=== PATIENT | male | born 2000 | race Caucasian/White ===

== ENCOUNTER 2025-04-08 13:29 | Emergency (ER) | payer BC, OTHER ==
[~2025-04-08] VITALS: Ht 188 cm; Wt 64.9 kg
--- NOTE | 2025-04-08 14:26 | ED.PDOC ---
Eye-HPI HPI Comments A 24 YEAR OLD MALE PRESENTS TO THE ED WITH COMPLAINT OF SORE THROAT. PATIENT STATES HE HAS BEEN EXPERIENCING A SORE THROATS AND BODY ACHES FOR THE PAST 1 WEEK. PATIENT REPORTS HE WAS SENT BY AN URGENT CARE TO THE ED FOR FURTHER EVALUATION DUE TO HAVING A SWOLLEN LYMPH NODE ON HIS NECK. PATIENT DENIES FEVER, CHILLS, SHORTNESS OF BREATH, CHEST PAIN, ABDOMINAL PAIN, NAUSEA, VOMITING, HEADACHE, OR OTHER COMPLAINTS. NO OTHER SYMPTOMS OR MODIFYING FACTORS AT THIS TIME. PATIENT IS ALERT, ORIENTED X 4, AND HAS STEADY GAIT. Chief Complaint: Flu like Time Seen by MD: 13:34 Reviewed Notes: Nurses Notes, Medications, Allergies Allergies: Coded Allergies: NO KNOWN ALLERGIES (Unverified , 04/08/25) Home Meds Active Scripts Lidocaine HCl (Mouth-Throat) (Lidocaine HCl Viscous) 2 % Prachi, 10 ML MT TID, #100 ML Prov:JYOTHI GAXIOLA 04/08/25 Cephalexin Monohydrate (Cephalexin) 500 Mg Cap, 1 CAP PO QID, #28 CAP Prov:JYOTHI GAXIOLA 04/08/25 Penicillin V Potassium (Veetids) 500 Mg Tab, 1 TAB PO QID, #28 TAB Prov:JYOTHI GAXIOLA 04/08/25 Information Source: Patient Mode of Arrival: Ambulatory Timing: Days Duration: Since onset, Days Prehospital treatment: None Quality: Pain, Red Lids: Normal Conjunctiva: Normal Cornea: Normal Pupils: Normal EOM: Normal Fundus: Normal Slit lamp exam: Normal Anterior chamber: Normal Mouth Location: Pharynx Mouth: Normal ENT Ear Exam: Normal, Normal, Normal Nose: Normal Sinuses: Normal Oropharynx: Tonsillar hypertrophy, Red, Exudate Onset: Spontaneous Throat Exposed to: None History of: None Last Tetanus: Unknown Modifying factors: Nothing Associated signs and symptoms: Sore Throat Past Medical History PAST MEDICAL HISTORY: Denies Surgical History: Denies all surgeries Family History Family History: Reviewed,noncontributory to illness Social History Smoker: Non-Smoker Alcohol: Denies ETOH Use Drugs: Denies Drug Use Lives In: Home Constitutional: denies: chills, diaphoresis, fatigue, fever, malaise, sweats, weakness, others EENTM: reports: throat pain, throat swelling; denies: blurred vision, double vision, ear bleeding, ear discharge, ear drainage, ear pain, ear ringing, eye pain, eye redness, hearing loss, mouth pain, mouth swelling, nasal discharge, nose bleeding, nose congestion, nose pain, photophobia, tearing, voice changes, others Respiratory: denies: cough, hemoptysis, orthopnea, SOB at rest, shortness of breath, SOB with excertion, stridor, wheezing, others Cardiovascular: denies: chest pain, dizzy spells, diaphoresis, Dyspnea on exert ion, edema, irregular heart beat, left arm pain, lightheadedness, palpitations, PND, syncope, others Gastrointestinal: denies: abdomen distended, abdominal pain, blood streaked bowels, constipated, diarrhea, dysphagia, difficulty swallowing, hematemesis, melena, nausea, poor appetite, poor fluid intake, rectal bleeding, rectal pain, vomiting, others Genitourinary: denies: burning, dysuria, flank pain, frequency, hematuria, incontinence, penile discharge, penile sore, pain, testicle pain, testicle swelling, urgency, others Neurological: denies: dizziness, fainting, headache, left sided numbness, left sided weakness, numbness, paresthesia, pre-existing deficit, right sided numbness, right sided weakness, seizure, speech problems, tingling, tremors, weakness, others Musculoskeletal: reports: muscle pain; denies: back pain, gout, joint pain, joint swelling, muscle stiffness, neck pain, others Integumetry: denies: bruises, change in color, change in hair/nails, dryness, laceration, lesions, lumps, rash, wounds, others Allergic/Immunocompromised: denies: Difficulty Healing, Frequent Infections, Hives, Itching, others Hematologic/Lymphatic: denies: anemia, blood clots, easy bleeding, easy bruising, swollen glands, others Endocrine: denies: excessive hunger, excessive sweating, excessive thirst, excessive urination, flushing, intolerance to cold, intolerance to heat, unexplained weight gain, unexplained weight loss, others Psychiatric: denies: anxiety, bipolar disorder, depression, hopeless, panic disorder, schizophrenia, sleepless, suicidal, others All Other Systems: Reviewed and Negative Physical Exam General Appearance: No Apparent Distress, Normal HEENT: PERRL/EOMI, Pharyngeal Erythema (TONSILLAR SWELLING WITH EXUDATES, NO PE RITONSILLAR ABSCESS. ), TMs Normal Neck: Full Range of Motion, Lymphadenopathy (R) (TENDERNESS ON RIGHT CERVICAL LYMPH NODE. ), Normal Inspection, Supple Respiratory: Chest Non-Tender, Lungs Clear, No Accessory Muscle Use, No Respiratory Distress, Normal Breath Sounds Cardiovascular: No Edema, No JVD, No Murmur, No Gallop, Normal Peripheral Pulses, Regular Rate/Rhythm Breast Exam: Deferred Gastrointestinal: No Organomegaly, Non Tender, No Pulsatile Mass, Normal Bowel Sounds, Soft Genitalia: Deferred Pelvic: Deferred Rectal: Deferred Extremities: No calf tenderness, Normal capillary refill, Normal inspection, Normal range of motion, Non-tender, No pedal edema Musculoskeletal : Apperance: Normal Neurologic: Alert, chemical plant technical director II-XII nml as Tested, No Motor Deficits, Normal Affect, Normal Mood, No Sensory Deficits Cerebellar Function: Normal Reflexes: Normal Skin: Dry, Normal Color, Warm Peripheral Pulses: 2+ carotid (R), 2+ carotid (L) Lymphatic: Cervical Adenopathy (R) Was a procedure done? Was a procedure done?: No EENT DIFF Eye: N/A Ear: Otitis Media, Pharyngitis, Sinusitis Nose: N/A Mouth: N/A Sore Throat: Pharyngitis, Streptococcal, Viral Pharyngitis, URI X-Ray, Labs, Meds, VS Vital Signs Date Time Temp Pulse Resp B/P (MAP) Pulse Ox O2 Delivery O2 Flow Rate FiO2 04/08/25 14:29 98.7 85 17 144/75 (98) 98 98.7 04/08/25 13:31 97.9 99 18 142/73 99 97.9 Lab Test 04/08/25 14:15 Range/Units Group A Streptococcus Rapid Positive Current Medications Medications (Trade) Dose Ordered Sig/Galen Route Start Time Stop Time Status Last Admin Ceftriaxone Sodium (Rocephin) 1,000 mg ONCE ONCE IM 04/08/25 14:15 04/08/25 14:16 DC 04/08/25 14:42 Methylprednisolone Sodium Succinate (Solu Medrol) 125 mg ONCE ONCE IM 04/08/25 14:15 04/08/25 14:16 DC 04/08/25 14:42 X-Ray, Labs, Meds, VS Comment EXTERNAL MEDICAL RECORDS REVIEWED: [NONE] INDEPENDENT HISTORIANS: [NONE] SOCIAL DETERMINANTS OF HEALTH: [NONE] LABS ORDERED: STREP A RAPID REVIEWED AND INTERPRETED RESULTS: STREP A POSITIVE IMAGING ORDERED: NONE TREATMENTS ORDERED: ROCEPHIN 1 G IM, SOLU-MEDROL 125 MG IM PROCEDURES PERFORMED: NONE CRITICAL CARE TIME: NONE I HAVE DISCUSSED THE PATIENT WITH THE ATTENDING PHYSICIAN DR. MAKI AND HE AGREES WITH THE PATIENT'S PLAN OF CARE AND DISPOSITION. BASED ON HISTORY OF PRESENT ILLNESS, AND PHYSICAL EXAM, PATIENT WILL BE DISCHARGED HOME. DISCUSSED PLAN FOR DISCHARGE HOME WITH RX [PENICILLIN VK, KEFLEX, AND 2% VISCOUS LIDOCAINE]. MEDICATION WARNINGS GIVEN. SHARED DECISION MAKING: PATIENT INSTRUCTED TO FOLLOW UP WITH PRIMARY CARE PROVIDER IN 1-2 DAYS FOR RE-EVALUATION OF SYMPTOMS. PATIENT VERBALIZES UNDERSTANDING TO RETURN TO ED FOR NEW OR WORSENING SYMPTOMS OR IF FOLLOW UP WITH PCP CANNOT BE OBTAINED. PATIENT FEELS COMFORTABLE GOING HOME AT THIS TIME. ALL QUESTIONS ADDRESSED AT TIME OF DISCHARGE. Time of 1ST Reevaluation: 15:08 Reevaluation 1ST: Improved Patient Education/Counseling: Diagnosis, Treatment, Need For Follow Up Family Education/Counseling: Diagnosis, Treatment, Need For Follow Up Medical Screening: No EMC Exist At This Time SEPSIS Sepsis Screen Date sepsis recognized/suspect: Apr 08, 2025 Time Sepsis recognized/suspect: 1331 Recent Procedure: No On Antibiotic Therapy: No Respiratory Rate >20: No Heart Rate >90: Yes Temp<36 C (96.8 F) or >38.3 C: No SBP <90 or MAP <65 mmHG: No New Acute Mental Status Change: No Is the patient on CPAP, BIPAP,: No Vital Signs Date Time Temp Pulse Resp B/P (MAP) Pulse Ox O2 Delivery O2 Flow Rate FiO2 04/08/25 14:29 98.7 85 17 144/75 (98) 98 98.7 04/08/25 13:31 97.9 99 18 142/73 99 97.9 Medications Medications Dose Ordered Sig/Galen Route Start Time Stop Time Status Last Admin Dose Admin Ceftriaxone Sodium 1,000 mg ONCE ONCE IM 04/08/25 14:15 04/08/25 14:16 DC 04/08/25 14:42 Methylprednisolone Sodium Succinate 125 mg ONCE ONCE IM 04/08/25 14:15 04/08/25 14:16 DC 04/08/25 14:42 Departure 1 Departure Time of Disposition: 15:08 Impression: Primary Impression: Acute streptococcal tonsillitis Qualified Codes: J03.00 - Acute streptococcal tonsillitis, unspecified Additional Impression: Cervical adenitis Disposition: HOME / SELF CARE / HOMELESS Condition: Stable Additional Instructions: FOLLOW-UP WITH PCP IN 1 TO 2 DAYS. TAKE MEDICATIONS PRESCRIBED. RETURN TO ED FOR ANY NEW OR WORSENING SYMPTOMS. e-Prescriptions Lidocaine HCl (Mouth-Throat) (Lidocaine HCl Viscous) 2 % Prachi 10 ML MT TID, #100 ML Prov: JYOTHI GAXIOLA 04/08/25 Cephalexin Monohydrate (Cephalexin) 500 Mg Cap 1 CAP PO QID, #28 CAP Prov: JYOTHI GAXIOLA 04/08/25 Penicillin V Potassium (Veetids) 500 Mg Tab 1 TAB PO QID, #28 TAB Prov: JYOTHI GAXIOLA 04/08/25 Discharged With: Self Critical Care Note Critical Care Time?: No Stability Stability form required: No I personally scribed for JYOTHI GAXIOLA ([email or web address]) on 04/08/25 at 14:26. Electronically submitted by Jhoan Ramirez ([email or web address]). I personally scribed for JYOTHI GAXIOLA ([email or web address]) on 04/08/25 at 15:02. Electronically submitted by Jhoan Ramirez (GALA). JYOTHI GAXIOLA Apr 08, 2025 14:26
[2025-04-08 14:29] VITALS: BP 144/75; PULSE 85; RESP 17; TEMP 98.7; O2SAT 98
[2025-04-08] MEDS: methylPREDNISolone SOD SUCC 125 MG/2 ML VL IM ONE (14:42)
[2025-04-08] MEDS: cefTRIAXone SOD 1,000 MG VL IM ONE (14:42)
[2025-04-08 14:56] LABS: Rapid Strep A Screen-Throat Positive
[2025-04-08] MEDS ORDERED: CEPH500C PO (15:07)
[2025-04-08] MEDS ORDERED: LIDO2SOL26 MT (15:07)
[2025-04-08] MEDS ORDERED: PENI500T2 PO (15:07)
== END 2025-04-08 15:11 | disposition home or self-care (01) ==
LOC: ER 13:29
DX: J03.00 Acute streptococcal tonsillitis, unspecified (principal); I88.9 Nonspecific lymphadenitis, unspecified; Z79.899 Other long term (current) drug therapy
CPT/HCPCS: 87880; 96372; 99284; J0696; J2919